=== PATIENT | female | born 1930 | race Caucasian/White ===

== ENCOUNTER 2016-11-24 20:31 | Emergency (ER) | payer OTHER ==
[~2016-11-24] VITALS: Ht 157.5 cm; Wt 92.6 kg
[~2016-11-24 20:31] MED LIST: AMLO-110 PO; ASPEC325 PO; ATEN-175 PO; CLB200 PO; FENO145T26 PO; FLUO20CA20 OR; HYZ/10015 PO; POTA-327 PO; [UNRECOGNIZED DRUG - OTHER] PO
[2016-11-24 20:38] VITALS: TEMP 36.7; Ht 157.5 cm; Wt 92.6 kg
[2016-11-24] MEDS ORDERED: SODIUM CHLORIDE 0.9% 1000ML 1,000 ML IV STA (20:42)
[2016-11-24] MEDS ORDERED: SODIUM CHLORIDE 0.9% 1000ML 250 ML IV STA (20:42)
[2016-11-24] MEDS ORDERED: OPTIRAY 320 IV PRN (21:00)
--- NOTE | 2016-11-24 21:07 | DIAGNOSTIC IMAGING REPORT ---
CHEST ONE VIEW PORTABLE CLINICAL HISTORY: Atypical chest pain COMPARISON STUDY: April 16, 2014 FINDINGS: There is borderline cardiac enlargement. There is no failure. There is no lobar consolidation. There are no pleural effusions. There is a retrocardiac opacity likely representing a hiatal hernia.[ IMPRESSION: Retrocardiac opacity, likely representing a hiatal hernia. No evidence of focal pulmonary consolidation Electronically signed by: Bin Medina M.D. 11/24/2016 9:05 PM Dictated Date/Time: 11/24/2016 9:04 PM
[2016-11-24 21:11] LABS: ISTAT CREATININE 0.8 mg/dl (0.6-1.3); ISTAT HEMOGLOBIN 13.3 g/dl (12.0-16.0); ISTAT IONIZED CALCIUM 1.23 mmol/l (1.12-1.32)
[2016-11-24 21:23] LABS: HEMATOCRIT 37.5 % (37-47); MEAN CELL VOLUME 93.1 fL (80-100); MEAN CORPUSCULAR HGB CONC 34.4 g/dl (32-36); MEAN PLATELET VOLUME 10.3 fL (7.4-10.4); PLATELET COUNT 222 K/uL (130-400); RED BLOOD COUNT 4.03 M/uL (4.2-5.4); WHITE BLOOD COUNT 7.08 K/uL (4.8-10.8)
[2016-11-24 21:39] LABS: ALT/SGPT 14 U/L (12-78); BLOOD UREA NITROGEN 23 mg/dl (7-18); BUN/CREATININE RATIO 23.6 (10-20); CALCIUM 9.2 mg/dl (8.5-10.1); CARBON DIOXIDE 28 mmol/L (21-32); CHLORIDE 102 mmol/L (98-107); CREATININE 0.97 mg/dl (0.60-1.20); GLUCOSE 142 mg/dl (70-99); POTASSIUM 3.8 mmol/L (3.5-5.1); SODIUM 135 mmol/L (136-145)
[2016-11-24 21:41] LABS: BASO % 0.1 %; BASO ABS # 0.01 K/uL (0-0.2); COMPLETE YES; EOS % 1.4 %; IG% 0.1 %; LYMPH % 35.3 %; MONO % 5.8 %; NEUT % 57.3 %
[2016-11-24 21:42] LABS: ALKALINE PHOSPHATASE 66 U/L (45-117); AST/SGOT 17 U/L (15-37)
--- NOTE | 2016-11-24 21:46 | DIAGNOSTIC IMAGING REPORT ---
CT ABD/PELVIS IV CONTRAST ONLY CLINICAL HISTORY: Generalized abdominal pain COMPARISON STUDY: None. TECHNIQUE: Following the IV administration of 92 mL of Optiray-320, CT scan of the abdomen and pelvis was performed from the lung bases to the proximal femurs. Images are reviewed in the axial, sagittal, and coronal planes. IV contrast was administered without complication. CT DOSE: 882.72 mGy.cm FINDINGS: Lower chest: There is a hiatal hernia. No pleural effusions are visualized. Liver: The contrast-enhanced liver is normal in size, contour, and attenuation. There is no intrahepatic biliary ductal dilatation. The hepatic veins and portal veins are patent. Gallbladder: Unremarkable. Spleen: Normal in size and attenuation. Pancreas: Unremarkable. Adrenal glands: Unremarkable. Kidneys: There are tiny nonobstructing right renal calculi. There is no hydronephrosis. There are left renal cortical cysts measuring up to 1 cm in diameter. Bowel: There are no transition zones indicate bowel obstruction. There is colonic diverticulosis. There are no acute peridiverticular inflammatory changes. The appendix appears normal. There is formed fecal material within small bowel loops, but there is no evidence of pathologic small bowel dilatation. Peritoneum: There is no intraperitoneal free air or abdominal ascites. Vasculature: There is minor ectasia of the abdominal aorta. There is no evidence of bandar aneurysm Adenopathy: None. Pelvic viscera: The uterus appears surgically absent Skeletal structures: There are postsurgical changes of a total right hip arthroplasty. There is an old T10 compression fracture. There is a grade 1 spinal listhesis of L4 and L5. IMPRESSION: 1. Hiatal hernia 2. No evidence of bowel obstruction. No evidence of free air 3. Nonobstructing right renal calculi 4. Normal appendix 5. Diverticulosis. No evidence of acute peridiverticular inflammatory change Electronically signed by: Bin Medina M.D. 11/24/2016 9:44 PM Dictated Date/Time: 11/24/2016 9:40 PM
[2016-11-24] MEDS ORDERED: DOCU-94 PO (22:10)
[2016-11-24] MEDS ORDERED: CYCL5TAB PO (22:10)
[2016-11-24] MEDS ORDERED: POTA10CA28 PO (22:10)
[2016-11-24] MEDS ORDERED: FLUO20CA35 PO (22:10)
[2016-11-24] MEDS ORDERED: TRAM-10 PO (22:10)
--- NOTE | 2016-11-24 22:15 | EMERGENCY ROOM VISIT NOTE ---
History Report prepared by Eliel: Shalini Mcgee Under the Supervision of: Dr. Shay Klein M.D. First contact with patient: 20:34 Chief Complaint: ABDOMINAL PAIN Stated Complaint: AB PAIN History of Present Illness The patient is a 86 year old female who presents to the Emergency Room with complaints of an episode of sharp abdominal pain beginning today. The patient states that she had LUQ sharp abdominal pain today and she was eating dinner when it got really bad. She reports that she thought that it may be from being constipated as she has experienced constipation in the past. She notes that she strained to have a bowel movement and became very diaphoretic but did not feel like she was going to pass out. The patient denies any trauma, urinary symptoms , numbness or weakness in the legs, fever, chills, headache, chest pain, shortness of breath, cough, and congestion. She reports that she has had a hysterectomy. The patient states that the abdominal pain went on and off for 3 weeks but is now resolved. Source of History: patient, family Onset: today Position: abdomen (LUQ) Quality: sharp Timing: resolved, other (episode) Associated Symptoms: + diaphoresis, No chest pain, No chills, No cough, No fevers, No headache, No melena, No urinary symptoms Note: The patient denies any trauma, numbness or weakness in the legs, and congestion. Review of Systems See HPI for pertinent positives & negatives. A total of 10 systems reviewed and were otherwise negative. Past Medical & Surgical Medical Problems: (1) Benign colon polyp (2) Depression (3) Dyslipidemia (4) HTN (hypertension) (5) Monoclonal paraproteinemia (6) Osteoarthritis Surgical Problems: (1) H/O: hysterectomy Old medical records were reviewed. Nurse's notes were reviewed and I agree with She does have problems with constipation. Denies cardiac history. Family History No pertinent family history stated. Social History Smoking Status: Never Smoker Smokeless Tobacco Use: No Alcohol Use: none Drug Use: none Housing Status: lives with family Current/Historical Medications Scheduled Amlodipine (Norvasc), 5 MG PO DAILY Atenolol (Tenormin), 150 MG PO DAILY Docusate Sodium (Colace), 2 CAP PO BID Fenofibrate (Tricor ), 145 MG PO QPM Fluoxetine (Prozac), 20 MG PO DAILY Hctz/Losartan (Hyzaar 25MG/100MG), 1 TAB PO DAILY Potassium Chloride (Micro-K Ext Rel), 10 MEQ PO QPM Scheduled PRN Cyclobenzaprine Hcl (Flexeril), 5 MG PO HS PRN for spasms Tramadol (Ultram), 1 TAB PO Q6 PRN for Pain Allergies Coded Allergies: HUONG Inhibitors (Verified Adverse Reaction, Unknown, COUGH, 11/24/16) Physical Exam Vital Signs Date Time Temp Pulse Resp B/P Pulse Ox O2 Delivery O2 Flow Rate FiO2 11/24/16 23:41 77 20 177/71 96 11/24/16 20:38 36.7 86 18 214/92 97 Room Air 11/24/16 20:37 87 Physical Exam General: Non-ill appearing older female in no acute distress. HEENT: Normal cephalic atraumatic. Pupils are equal round and reactive to light. Sclerae anicteric. Extraocular movements are intact. Oropharynx is pink with moist mucous membranes. No swelling of the mouth lips or tongue. Neck: Supple with a midline trachea. No meningeal signs or stiffness, no JVD or bruits. No Stridor. Chest: Clear to auscultation bilaterally. No wheezes or rhonchi. No increased work of breathing. Heart: regular rate and rhythm. Abdomen: Soft nontender, nondistended without rebound guarding or rigidity. Extremities: No cyanosis clubbing or edema. No calf tenderness or assymetry Spine/Back. Non tender to palpation. No CVA tenderness Skin: Good turgor without rashes. Neurologic exam: Cranial nerves two through 12 are intact. Motor and sensation are intact and symmetrical throughout. Medical Decision & Procedures ER Provider Diagnostic Interpretation: Radiology results as stated below per my review and radiologist interpretation: CHEST ONE VIEW PORTABLE FINDINGS: There is borderline cardiac enlargement. There is no failure. There is no lobar consolidation. There are no pleural effusions. There is a retrocardiac opacity likely representing a hiatal hernia.[ IMPRESSION: Retrocardiac opacity, likely representing a hiatal hernia. No evidence of focal pulmonary consolidation Electronically signed by: Bin Medina M.D. 11/24/2016 9:05 PM Dictated Date/Time: 11/24/2016 9:[address] ABD/PELVIS IV CONTRAST ONLY CT DOSE: 882.72 mGy.cm FINDINGS: Lower chest: There is a hiatal hernia. No pleural effusions are visualized. Liver: The contrast-enhanced liver is normal in size, contour, and attenuation. There is no intrahepatic biliary ductal dilatation. The hepatic veins and portal veins are patent. Gallbladder: Unremarkable. Spleen: Normal in size and attenuation. Pancreas: Unremarkable. Adrenal glands: Unremarkable. Kidneys: There are tiny nonobstructing right renal calculi. There is no hydronephrosis. There are left renal cortical cysts measuring up to 1 cm in diameter. Bowel: There are no transition zones indicate bowel obstruction. There is colonic diverticulosis. There are no acute peridiverticular inflammatory changes. The appendix appears normal. There is formed fecal material within small bowel loops, but there is no evidence of pathologic small bowel dilatation. Peritoneum: There is no intraperitoneal free air or abdominal ascites. Vasculature: There is minor ectasia of the abdominal aorta. There is no evidence of bandar aneurysm Adenopathy: None. Pelvic viscera: The uterus appears surgically absent Skeletal structures: There are postsurgical changes of a total right hip arthroplasty. There is an old T10 compression fracture. There is a grade 1 spinal listhesis of L4 and L5. IMPRESSION: 1. Hiatal hernia 2. No evidence of bowel obstruction. No evidence of free air 3. Nonobstructing right renal calculi 4. Normal appendix 5. Diverticulosis. No evidence of acute peridiverticular inflammatory change Electronically signed by: Bin Medina M.D. 11/24/2016 9:44 PM Dictated Date/Time: 11/24/2016 9:40 PM Laboratory Results 11/24/16 20:50 Red Blood Count 4.03, Mean Corpuscular Volume 93.1, Mean Corpuscular Hemoglobin 32.0, Mean Corpuscular Hemoglobin Concent 34.4, Mean Platelet Volume 10.3, Neutrophils (%) (Auto) 57.3, Lymphocytes (%) (Auto) 35.3, Monocytes (%) (Auto) 5.8, Eosinophils (%) (Auto) 1.4, Basophils (%) (Auto) 0.1, Neutrophils # (Auto) 4.05, Lymphocytes # (Auto) 2.50, Monocytes # (Auto) 0.41, Eosinophils # (Auto) 0.10, Basophils # (Auto) 0.01 11/24/16 20:50 Test 11/24/16 20:50 11/24/16 20:54 11/24/16 21:00 11/24/16 22:26 White Blood Count 7.08 K/uL (4.8-10.8) Red Blood Count 4.03 M/uL (4.2-5.4) Hemoglobin 12.9 g/dL (12.0-16.0) Hematocrit 37.5 % (37-47) Mean Corpuscular Volume 93.1 fL (80-100) Mean Corpuscular Hemoglobin 32.0 pg (25-34) Mean Corpuscular Hemoglobin Concent 34.4 g/dl (32-36) Platelet Count 222 K/uL (130-400) Mean Platelet Volume 10.3 fL (7.4-10.4) Neutrophils (%) (Auto) 57.3 % Lymphocytes (%) (Auto) 35.3 % Monocytes (%) (Auto) 5.8 % Eosinophils (%) (Auto) 1.4 % Basophils (%) (Auto) 0.1 % Neutrophils # (Auto) 4.05 K/uL (1.4-6.5) Lymphocytes # (Auto) 2.50 K/uL (1.2-3.4) Monocytes # (Auto) 0.41 K/uL (0.11-0.59) Eosinophils # (Auto) 0.10 K/uL (0-0.5) Basophils # (Auto) 0.01 K/uL (0-0.2) RDW Standard Deviation 46.7 fL (36.4-46.3) RDW Coefficient of Variation 13.9 % (11.5-14.5) Immature Granulocyte % (Auto) 0.1 % Immature Granulocyte # (Auto) 0.01 K/uL (0.00-0.02) Est Creatinine Clear Calc Drug Dose 45.7 ml/min Estimated GFR () 62.2 Estimated GFR (Non- 53.6 BUN/Creatinine Ratio 23.6 (10-20) Calcium Level 9.2 mg/dl (8.5-10.1) Total Bilirubin 0.3 mg/dl (0.2-1) Direct Bilirubin < 0.1 mg/dl (0-0.2) Aspartate Amino Transf (AST/SGOT) 17 U/L (15-37) Alanine Aminotransferase (ALT/SGPT) 14 U/L (12-78) Alkaline Phosphatase 66 U/L (45-117) Total Protein 9.4 gm/dl (6.4-8.2) Albumin 3.2 gm/dl (3.4-5.0) Lipase 299 U/L (73-393) Bedside Hemoglobin 13.3 g/dl (12.0-16.0) Bedside Hematocrit 39 % (37-47) Bedside Sodium 141 mEq/L (135-144) Bedside Potassium 4.0 mEq/L (3.3-5.0) Bedside Chloride 102 mEq/L (101-112) Bedside Total CO2 24 mEq/l (24-31) Anion Gap 21.0 mmol/L (16-25) Bedside Blood Urea Nitrogen 24 mg/dl (7-18) Bedside Creatinine 0.8 mg/dl (0.6-1.3) Bedside Glucose (other) 149 mg/dl (70-99) Bedside Ionized Calcium (Lopez) 1.23 mmol/l (1.12-1.32) Bedside Troponin I 0.000 ng/ml (0-0.045) Urine Color YELLOW Urine Appearance CLEAR (CLEAR) Urine pH 8.0 (4.5-7.5) Urine Specific [place] 1.026 (1.000-1.030) Urine Protein NEG (NEG) Urine Glucose (UA) NEG (NEG) Urine Ketones NEG (NEG) Urine Occult Blood NEG (NEG) Urine Nitrite NEG (NEG) Urine Bilirubin NEG (NEG) Urine Urobilinogen NEG (NEG) Urine Leukocyte Esterase NEG (NEG) Laboratory studies as stated above per my review. Medications Administered Medications (Trade) Dose Ordered Sig/Lalo Route Start Time Stop Time Status Last Admin Dose Admin Sodium Chloride 250 ml @ 999 mls/hr Q16M STAT IV 11/24/16 20:42 11/24/16 20:57 DC 11/24/16 20:42 999 MLS/HR Sodium Chloride (Nss 1000ml) 1,000 ml @ 100 mls/hr Q10H STAT IV 11/24/16 20:42 11/24/16 23:54 DC 11/24/16 20:42 100 MLS/HR ECG Indication: abdominal pain Rate (beats per minute): 79 Rhythm: normal sinus Findings: no acute ischemic change, no ectopy ED Course 2032: Past medical records reviewed. The patient was evaluated in room C9, and a complete history and physical examination were performed. 2041: Sodium Chloride 1000 ml @ 100 mls/hr IV, Sodium Chloride 250 ml @ 999 mls/ hr IV. 2131: I reevaluated the patient and talked to her daughter. 2306: I reevaluated the patient. She is resting comfortably and I talked to her daughter. 2309: Upon reevaluation, the patient is hemodynamically stable. I discussed the results and treatment plan with the patient and her daughter. They verbalized agreement of the treatment plan. The patient was discharged home. Medical Decision Differential Diagnoses include splenic process, AAA, bowel obstruction, kidney stone, infection, inflammation, electrolyte or metabolic imbalance. This patient comes in as described above. She was placed in room C9. She is here for treatment and evaluation of left sided abdominal pain mostly towards upper abdomen. She's been very constipated lately and she was feeling constipated and had this pain and felt like she might pass out. She has no pain at present and feels great and has no chest pain or shortness of breath. She's had no numbness weakness of her legs. No fever or chills. IV access established was gently hydrated with IV normal saline. She had extensive workup done here. EKG does not suggest acute coronary syndrome or arrhythmia. She has nothing to suggest a pulmonary process. I did a CAT scan of her abdomen and she has no acute findings. She has no aortic pathology obstruction or any other symptoms which would explain her symptoms. She has no electrolyte or metabolic abnormalities and nothing to suggest infection. She feels good and would like to go home if it is reasonable .I will have her use a stool softener. I encourage her return if she has worsening of symptoms, fever or chills, chest pain, shortness of breath, any new problems concerns. I also encouraged her her doctors in one to 2 days for recheck. She is happy with plan and discharged to home. Impression Primary Impression: LUQ abdominal pain Additional Impressions: Constipation Near syncope Scribe Attestation The scribe's documentation has been prepared under my direction and personally reviewed by me in its entirety. I confirm that the note above accurately reflects all work, treatment, procedures, and medical decision making performed by me. Departure Information Dispostion Home / Self-Care Referrals Duglas Romo D.O. (PCP) Forms HOME CARE DOCUMENTATION FORM, IMPORTANT VISIT INFORMATION Patient Instructions [facility] Additional Instructions Rest Drink plenty of fluids Use a stool softener or Miralax as needed Return if: worsening of symptoms, increasing pain, chest pain, any new problems or concerns Follow-up with your doctor on Saturday for recheck Problem Qualifiers
[2016-11-24 22:39] LABS: URINE APPEARANCE CLEAR (CLEAR); URINE BILIRUBIN NEG (NEG); URINE COLOR YELLOW; URINE NITRITE NEG (NEG); URINE SPECIFIC GRAVITY 1.026 (1.000-1.030); UROBILINOGEN NEG (NEG)
[2016-11-24 22:43] LABS: MANUAL MICROSCOPIC REQUIRED? NO; REVIEW REQ? NO
[2016-11-24 23:41] VITALS: BP 177/71; PULSE 77; O2SAT 96
== END 2016-11-24 23:42 | disposition home or self-care (01) ==
LOC: EDBD 20:31 → C.EDC 20:31
DX: R10.12 Left upper quadrant pain (principal); K59.00 Constipation, unspecified; R55 Syncope and collapse; I10 Essential (primary) hypertension; E78.5 Hyperlipidemia, unspecified; Z90.710 Acquired absence of both cervix and uterus; M19.90 Unspecified osteoarthritis, unspecified site; F32.9 Major depressive disorder, single episode, unspecified

== ENCOUNTER 2017-10-26 16:57 | Inpatient (IN) | payer OTHER ==
[~2017-10-26] VITALS: Ht 157.5 cm; Wt 90.1 kg
[~2017-10-26 16:57] MED LIST changes: -ASPEC325 PO; -CLB200 PO; +CYCL5TAB PO; +DOCU-94 PO; -FLUO20CA20 OR; +FLUO20CA35 PO; -POTA-327 PO; +POTA10CA28 PO; +TRAM-10 PO; -[UNRECOGNIZED DRUG - OTHER] PO
[2017-10-26] MEDS ORDERED: SODIUM CHLORIDE 0.9% 1000ML 1,000 ML IV STA (17:02)
[2017-10-26] MEDS ORDERED: ACETAMINOPHEN 500 MG TAB PO STA (17:20)
[2017-10-26] MEDS ORDERED: SODIUM CHLORIDE 0.9% 500ML 500 ML IV STA (17:21)
[2017-10-26 18:03] LABS: HEMATOCRIT 34.1 % (37-47); HEMOGLOBIN 11.7 g/dL (12.0-16.0); MEAN CELL VOLUME 96.1 fL (80-100); MEAN CORPUSCULAR HGB CONC 34.3 g/dl (32-36); MEAN PLATELET VOLUME 10.4 fL (7.4-10.4); PLATELET COUNT 169 K/uL (130-400); RED CELL DISTRIBUTION WIDTH CV 13.8 % (11.5-14.5); RED CELL DISTRIBUTION WIDTH SD 48.5 fL (36.4-46.3)
[2017-10-26 18:04] LABS: INFLUENZA A PCR Neg for Influ A (NEG); INFLUENZA B PCR Neg for Influ B (NEG)
[2017-10-26 18:12] LABS: INR 1.4 (0.9-1.1); PTT PATIENT 30.1 SECONDS (21.0-31.0)
[2017-10-26 18:20] LABS: ALBUMIN 2.6 gm/dl (3.4-5.0); ALT/SGPT 13 U/L (12-78); AST/SGOT 19 U/L (15-37); BLOOD UREA NITROGEN 20 mg/dl (7-18); CALCIUM 8.9 mg/dl (8.5-10.1); CARBON DIOXIDE 25 mmol/L (21-32); CREATININE 1.04 mg/dl (0.60-1.20); GLUCOSE 123 mg/dl (70-99); LIPASE 92 U/L (73-393); POTASSIUM 3.5 mmol/L (3.5-5.1); SODIUM 132 mmol/L (136-145)
[2017-10-26] MEDS ORDERED: POLY335019 PO (18:20)
--- NOTE | 2017-10-26 18:28 | DIAGNOSTIC IMAGING REPORT ---
CHEST ONE VIEW PORTABLE HISTORY: EVALUATE WEAKNESS COMPARISON: Chest 11/24/2014. FINDINGS: The right lung is clear. The heart is borderline enlarged. This remains unchanged. No pleural effusions. No pneumothorax. There is a new airspace opacity within the left lower lobe. Small hiatus hernia, unchanged. IMPRESSION: A new left lower lobe airspace opacity consistent with a pneumonia. Recommend follow-up to ensure resolution. Electronically signed by: Riccardo Ferris M.D. 10/26/2017 6:27 PM Dictated Date/Time: 10/26/2017 6:26 PM
[2017-10-26 18:31] LABS: ALKALINE PHOSPHATASE 52 U/L (45-117)
[2017-10-26 18:39] LABS: BASO % 0.2 %; BASO ABS # 0.02 K/uL (0-0.2); IG# 0.04 K/uL (0.00-0.02); LYMPH ABS # 1.25 K/uL (1.2-3.4); MONO % 5.6 %; MONO ABS # 0.58 K/uL (0.11-0.59); NEUT % 81.8 %; NEUT ABS # 8.51 K/uL (1.4-6.5)
[2017-10-26] MEDS ORDERED: LEVAQUIN 750MG / 150ML D5W IV STA (18:46)
--- NOTE | 2017-10-26 19:10 | History and Physical ---
History & Physical Date & Time of Service: Oct 26, 2017 at 19:10 Chief Complaint: Fever, Flu Like Sx, Weakness Primary Care Physician: Duglas Romo D.O. History of Present Illness Source: patient, family (Daughter ) This a 87 yo F with past medical hx of HTN , Hyperlipidemia , Ostearthritis , depression -brought to ER by her Daughter Pt has been having cough , fever , chills, sore throat for past 3-4 days , had poor PO intake had generalized weakness, no muscle or joint ache pt lives with her daughter and son in law -both have been having URI symptoms for past 1 week This morning her daughter noticed -pt to be for confused ," foggy " , unable to remember things -which is off form her baseline pt is independent in her ADL' , at baseline usually not forgetful in ER pt was febrile temp 38.3 /tachycardic HR 108 /tachypneic RR 20 was hypoxic in room air, on 2 L 02 supplement ( not on home O2) Cxray shows Left lower lobe infiltrate Influenza PCR -negative for Influenza A/B Past Medical/Surgical History Medical Problems: (1) Benign colon polyp Status: Resolved (2) Depression Status: Chronic (3) Dyslipidemia Status: Chronic (4) HTN (hypertension) Status: Chronic (5) Monoclonal paraproteinemia Status: Chronic (6) Osteoarthritis Status: Chronic Surgical Problems: (1) H/O: hysterectomy Status: Resolved Social History Smoking Status: Never Smoker Drug Use: none Housing status: lives with family Multi-Drug Resistant Organisms History of MDRO: No Allergies Coded Allergies: HUONG Inhibitors (Verified Adverse Reaction, Unknown, COUGH, 10/26/17) Home Medications Scheduled Amlodipine (Norvasc), 5 MG PO DAILY Atenolol (Tenormin), 150 MG PO DAILY Fenofibrate (Tricor ), 145 MG PO QPM Fluoxetine (Prozac), 20 MG PO DAILY Polyethylene Glycol 3350 (Miralax), 17 GM PO DAILY Potassium Chloride (Micro-K Ext Rel), 10 MEQ PO QPM Scheduled PRN Cyclobenzaprine Hcl (Flexeril), 5 MG PO HS PRN for spasms Tramadol (Ultram), 1 TAB PO Q6 PRN for Pain Review of Systems Constitutional: + fever, + chills, + weakness, + fatigue, + problem reported ( headache ) ENT: + sore throat Respiratory: + cough, + sputum, + shortness of breath, + dyspnea on exertion Abdomen: No pain, No nausea, No vomiting, No diarrhea, No constipation, No GI bleeding, No problem reported Musculoskeletal: No joint pain, No muscle pain, No swelling, No calf pain, No problem reported Genitourinary - Female: No dysuria, No urinary frequency, No urinary urgency, No urinary incontinence, No urinary retention, No hematuria, No dysmenorrhea, No menorrhagia, No metrorrhagia, No rash, No vaginal bleeding, No vaginal discharge, No vaginal itching, No vulvodynia, No , No problem reported Neurologic: + memory loss, + weakness, + vertigo, + balance problems Endocrine: + fatigue Physical Exam Vital Signs Date Time Temp Pulse Resp B/P (MAP) Pulse Ox O2 Delivery O2 Flow Rate FiO2 10/26/17 18:52 95 20 156/74 95 Nasal Cannula 2.0 10/26/17 17:40 92 Room Air 10/26/17 17:08 38.3 108 20 156/74 92 Room Air 10/26/17 17:07 99 General Appearance: no apparent distress, + pertinent finding (well appearing elderly female , very pleasant ) Head: normocephalic, atraumatic Eyes: normal inspection, PERRL, EOMI, sclerae normal Neck: no carotid bruits, trachea midline Respiratory/Chest: chest non-tender, + crackles, + wheezing Cardiovascular: no edema, + tachycardia Abdomen/GI: non tender, soft Extremities/Musculoskelatal: normal inspection, no calf tenderness, normal capillary refill, no pedal edema Neurologic/Psych: no motor/sensory deficits, alert, normal mood/affect Skin: normal color, warm/dry, no rash Diagnostics Laboratory Results Results Past 24 Hours Test 10/26/17 17:00 10/26/17 17:30 10/26/17 17:52 Range/Units Influenza Type A (RT-PCR) Neg for Influ A NEG Influenza Type B (RT-PCR) Neg for Influ B NEG White Blood Count 10.40 4.8-10.8 K/uL Red Blood Count 3.55 4.2-5.4 M/uL Hemoglobin 11.7 12.0-16.0 g/dL Hematocrit 34.1 37-47 % Mean Corpuscular Volume 96.1 80-100 fL Mean Corpuscular Hemoglobin 33.0 25-34 pg Mean Corpuscular Hemoglobin Concent 34.3 32-36 g/dl Platelet Count 169 130-400 K/uL Mean Platelet Volume 10.4 7.4-10.4 fL Neutrophils (%) (Auto) 81.8 % Lymphocytes (%) (Auto) 12.0 % Monocytes (%) (Auto) 5.6 % Eosinophils (%) (Auto) 0.0 % Basophils (%) (Auto) 0.2 % Neutrophils # (Auto) 8.51 1.4-6.5 K/uL Lymphocytes # (Auto) 1.25 1.2-3.4 K/uL Monocytes # (Auto) 0.58 0.11-0.59 K/uL Eosinophils # (Auto) 0.00 0-0.5 K/uL Basophils # (Auto) 0.02 0-0.2 K/uL RDW Standard Deviation 48.5 36.4-46.3 fL RDW Coefficient of Variation 13.8 11.5-14.5 % Immature Granulocyte % (Auto) 0.4 % Immature Granulocyte # (Auto) 0.04 0.00-0.02 K/uL Red Blood Cell Morphology Unremarkable Prothrombin Time 14.4 9.0-12.0 SECONDS Prothromb Time International Ratio 1.4 0.9-1.1 Activated Partial Thromboplast Time 30.1 21.0-31.0 SECONDS Partial Thromboplastin Ratio 1.2 Sodium Level 132 136-145 mmol/L Potassium Level 3.5 3.5-5.1 mmol/L Chloride Level 101 98-107 mmol/L Carbon Dioxide Level 25 21-32 mmol/L Anion Gap 6.0 3-11 mmol/L Blood Urea Nitrogen 20 7-18 mg/dl Creatinine 1.04 0.60-1.20 mg/dl Est Creatinine Clear Calc Drug Dose 41.4 ml/min Estimated GFR () 56.7 Estimated GFR (Non- 49.0 BUN/Creatinine Ratio 19.3 10-20 Random Glucose 123 70-99 mg/dl Calcium Level 8.9 8.5-10.1 mg/dl Magnesium Level 1.5 1.8-2.4 mg/dl Total Bilirubin 0.9 0.2-1 mg/dl Direct Bilirubin 0.3 0-0.2 mg/dl Aspartate Amino Transf (AST/SGOT) 19 15-37 U/L Alanine Aminotransferase (ALT/SGPT) 13 12-78 U/L Alkaline Phosphatase 52 45-117 U/L Troponin I < 0.015 0-0.045 ng/ml Total Protein 9.0 6.4-8.2 gm/dl Albumin 2.6 3.4-5.0 gm/dl Lipase 92 73-393 U/L Thyroid Stimulating Hormone (TSH) 1.740 0.300-4.500 uIu/ml Microbiology Results 10/26/17 Blood Culture, Received Pending 10/26/17 Blood Culture, Received Pending Diagnostic Radiology CHEST ONE VIEW PORTABLE HISTORY: EVALUATE WEAKNESS COMPARISON: Chest 11/24/2014. FINDINGS: The right lung is clear. The heart is borderline enlarged. This remains unchanged. No pleural effusions. No pneumothorax. There is a new airspace opacity within the left lower lobe. Small hiatus hernia, unchanged. IMPRESSION: A new left lower lobe airspace opacity consistent with a pneumonia. Recommend follow-up to ensure resolution. Impression Assessment and Plan COMMUNITY ACQUIRED PNEUMONIA : presents with 3-4 days hx of fever, sore throat , headache , cough with productive sputum Influenza PCR -negative Left lower lobe infiltrate noted in Cxray pt's meets SIRS criteria -febrile on presentation , tachycardic, tachypneic source of infection -Pneumonia on presentation white count -wnl pt started on empiric Abx with IV Levaquin blood culture x2, sputum culture ordered in ER SOB /HYPOXIA REQUIRING SUPPLEMENTAL : due to above wheeze noted on auscultation. no Hx of COPD or asthma PRN Neb tx Xoponex/Atrovent ordered cont tx for pneumonia as outlined above expected to have resolution of hypoxia in next 24-48 hrs with clinical improvement CONFUSION : mild confusion /forgetfulness noted by Daughter this morning possible metabolic encephalopathy due to infection /pneumonia /electrolyte abnormality /dehydration mental status improved gradually with IV hydration continue to monitor fall precaution ordered HYPONATREMIA : Mild hyponatremia Na 132 -due to dehydration , poor PO intake not on any diuretics IVF with NSS ordered repeat BMP in AM LOW MG : due to poor PO intake replaced MILD COAGULOPATHY : INR 1.4 /PT 14.4 pt not on any anticoagulation does no take Aspirin LFT' -unremarkable possible due to viral illness repeat Coags ordered in AM will hold sub q heparin for DVT prophylaxis HTN : BP stable cont Atenolol HYPERLIPIDEMIA : on Tricor/Fenofibrate DEPRESSION : on SSRI FULL CODE -D/w pt DVT PROPHYLAXIS : SCD and teds ambulate DISPOSITION PT/OT eval requested lives at home with daughter will benefit with home health visiting nurse -social service consult requested Medicine follow up with Dr Romo at [facility] Level of Care Telemetry Resuscitation Status FULL RESUSCITATION VTE Prophylaxis VTE Risk Assessment Done? Y/N: Yes Risk Level: Moderate Given or contraindicated: Martell Stockings, SCD's Additional Copies To Duglas Romo D.O.
[2017-10-26] MEDS ORDERED: ALUMINUM/MAGNESIUM/SIMETH (MAALOX MAX) 30 ML UDC PO PRN (19:15)
[2017-10-26] MEDS ORDERED: ONDANSETRON INJ 2 MG/ML 2 ML VIAL IV PRN (19:15)
[2017-10-26] MEDS ORDERED: MAGNESIUM HYDROXIDE SUSP 30 ML UDC PO PRN (19:15)
[2017-10-26] MEDS ORDERED: ACETAMINOPHEN 325 MG TAB PO PRN (19:15)
[2017-10-26] MEDS ORDERED: NITROGLYCERIN 0.4 MG SL PER TAB CHARGE SL PRN (19:15)
[2017-10-26] MEDS ORDERED: POLYETHYLENE (MIRALAX) 17 GM PACK PO PRN (19:15)
[2017-10-26 19:30] VITALS: BP 160/76; PULSE 99; TEMP 36.9; O2SAT 95; Ht 157.5 cm; Wt 90.1 kg
[2017-10-26] MEDS ORDERED: TRAMADOL HCL 50 MG TAB PO PRN (19:30)
[2017-10-26] MEDS ORDERED: CYCLOBENZAPRINE HCL 5 MG TAB PO PRN (19:30)
[2017-10-26] MEDS ORDERED: SODIUM CHLORIDE 0.9% 1000ML 1,000 ML IV SCH (20:00)
[2017-10-26] MEDS ORDERED: LEVOFLOXACIN CONSULT ACTIVE PRN (20:00)
[2017-10-26] MEDS ORDERED: MAGNESIUM SULFATE 1GM / D5W 1 GM in PREMIXED IN D5W 100 ML IV ONE (20:00)
--- NOTE | 2017-10-26 20:34 | EMERGENCY ROOM VISIT NOTE ---
History Report prepared by Eliel: Laurent Caputo Under the Supervision of: Dr. Tommy Lund M.D. First contact with patient: 17:02 Chief Complaint: FLU LIKE SX Stated Complaint: FEVER, FLU LIKE SX, WEAKNESS History of Present Illness The patient is a 87 year old female who presents to the Emergency Room with complaints of flu-like symptoms that began four days ago. She denies any known lung history. Over the past couple of days, the patient has been experiencing a multitude of symptoms which includes a fever, chills, a nonproductive cough, a sore throat, and body aches. She did not receive her influenza vaccine. She has recently been feeling moderate generalized weakness with some shortness of breath as well. Pt denies LOC, headache, diaphoresis, visual changes, neck pain , chest pain, nausea, vomiting, abdominal pain, back pain, melena, hematochezia , urinary symptoms, numbness, weakness, lymphadenopathy, rash, or other complaints. She has been taking Tylenol for her symptoms, but did not take any today. She took a dose of Robitussin earlier today. She does not wear oxygen at home. Source of History: patient Onset: four days ago Position: other (global) Symptom Intensity: moderate Quality: other (Flu-like symptoms) Timing: worsening Associated Symptoms: + fevers, + chills, + sorethroat, + cough, + SOB, + weakness (generalized) Note: Positive body aches Review of Systems See HPI for pertinent positives and negatives. A total of ten systems were reviewed and were otherwise negative. Past Medical & Surgical Medical Problems: (1) Benign colon polyp (2) Depression (3) Dyslipidemia (4) Flu-like symptoms (5) HTN (hypertension) (6) Monoclonal paraproteinemia (7) Osteoarthritis (8) Pneumonia Surgical Problems: (1) H/O: hysterectomy Family History Omitted secondary to the patient's age. Social History Smoking Status: Never Smoker Alcohol Use: none Drug Use: none Housing Status: lives with family Current/Historical Medications Scheduled Amlodipine (Norvasc), 5 MG PO DAILY Atenolol (Tenormin), 150 MG PO DAILY Fenofibrate (Tricor ), 145 MG PO QPM Fluoxetine (Prozac), 20 MG PO DAILY Polyethylene Glycol 3350 (Miralax), 17 GM PO DAILY Potassium Chloride (Micro-K Ext Rel), 10 MEQ PO QPM Scheduled PRN Cyclobenzaprine Hcl (Flexeril), 5 MG PO HS PRN for spasms Tramadol (Ultram), 1 TAB PO Q6 PRN for Pain Allergies Coded Allergies: HUONG Inhibitors (Verified Adverse Reaction, Unknown, COUGH, 10/26/17) Physical Exam Vital Signs Date Time Temp Pulse Resp B/P (MAP) Pulse Ox O2 Delivery O2 Flow Rate FiO2 10/26/17 18:52 95 20 156/74 95 Nasal Cannula 2.0 10/26/17 17:40 92 Room Air 10/26/17 17:08 38.3 108 20 156/74 92 Room Air 10/26/17 17:07 99 Physical Exam GENERAL: Awake, alert, tired-appearing, in no distress HENT: Normocephalic, atraumatic. Oropharynx unremarkable. EYES: Normal conjunctiva. Sclera non-icteric. NECK: Supple. No nuchal rigidity. FROM. No JVD. RESPIRATORY: Clear to auscultation. CARDIAC: Borderline tachycardic rate, normal rhythm. Extremities warm and well perfused. Pulses equal. ABDOMEN: Soft, non-distended. No tenderness to palpation. No rebound or guarding. No masses. RECTAL: Deferred. MUSCULOSKELETAL: Chest examination reveals no tenderness. The back is symmetrical on inspection without obvious abnormality. There is no CVA tenderness to palpation. No joint edema. LOWER EXTREMITIES: Calves are equal size bilaterally and non-tender. No edema. No discoloration. NEURO: Normal sensorium. No sensory or motor deficits noted. SKIN: No rash or jaundice noted. Medical Decision & Procedures ER Provider Diagnostic Interpretation: Radiology results as stated below per my review and radiologist interpretation: CHEST ONE VIEW PORTABLE HISTORY: EVALUATE WEAKNESS COMPARISON: Chest 11/24/2014. FINDINGS: The right lung is clear. The heart is borderline enlarged. This remains unchanged. No pleural effusions. No pneumothorax. There is a new airspace opacity within the left lower lobe. Small hiatus hernia, unchanged. IMPRESSION: A new left lower lobe airspace opacity consistent with a pneumonia. Recommend follow-up to ensure resolution. Electronically signed by: Riccardo Ferris M.D. 10/26/2017 6:27 PM Dictated Date/Time: 10/26/2017 6:26 PM Laboratory Results 10/26/17 17:30 Red Blood Count 3.55, Mean Corpuscular Volume 96.1, Mean Corpuscular Hemoglobin 33.0, Mean Corpuscular Hemoglobin Concent 34.3, Mean Platelet Volume 10.4, Neutrophils (%) (Auto) 81.8, Lymphocytes (%) (Auto) 12.0, Monocytes (%) (Auto) 5.6, Eosinophils (%) (Auto) 0.0, Basophils (%) (Auto) 0.2, Neutrophils # (Auto) 8.51, Lymphocytes # (Auto) 1.25, Monocytes # (Auto) 0.58, Eosinophils # (Auto) 0.00, Basophils # (Auto) 0.02 10/26/17 17:30 Test 10/26/17 17:00 10/26/17 17:30 10/26/17 17:52 Influenza Type A (RT-PCR) Neg for Influ A (NEG) Influenza Type B (RT-PCR) Neg for Influ B (NEG) White Blood Count 10.40 K/uL (4.8-10.8) Red Blood Count 3.55 M/uL (4.2-5.4) Hemoglobin 11.7 g/dL (12.0-16.0) Hematocrit 34.1 % (37-47) Mean Corpuscular Volume 96.1 fL (80-100) Mean Corpuscular Hemoglobin 33.0 pg (25-34) Mean Corpuscular Hemoglobin Concent 34.3 g/dl (32-36) Platelet Count 169 K/uL (130-400) Mean Platelet Volume 10.4 fL (7.4-10.4) Neutrophils (%) (Auto) 81.8 % Lymphocytes (%) (Auto) 12.0 % Monocytes (%) (Auto) 5.6 % Eosinophils (%) (Auto) 0.0 % Basophils (%) (Auto) 0.2 % Neutrophils # (Auto) 8.51 K/uL (1.4-6.5) Lymphocytes # (Auto) 1.25 K/uL (1.2-3.4) Monocytes # (Auto) 0.58 K/uL (0.11-0.59) Eosinophils # (Auto) 0.00 K/uL (0-0.5) Basophils # (Auto) 0.02 K/uL (0-0.2) RDW Standard Deviation 48.5 fL (36.4-46.3) RDW Coefficient of Variation 13.8 % (11.5-14.5) Immature Granulocyte % (Auto) 0.4 % Immature Granulocyte # (Auto) 0.04 K/uL (0.00-0.02) Red Blood Cell Morphology Unremarkable Prothrombin Time 14.4 SECONDS (9.0-12.0) Prothromb Time International Ratio 1.4 (0.9-1.1) Activated Partial Thromboplast Time 30.1 SECONDS (21.0-31.0) Partial Thromboplastin Ratio 1.2 Anion Gap 6.0 mmol/L (3-11) Est Creatinine Clear Calc Drug Dose 41.4 ml/min Estimated GFR () 56.7 Estimated GFR (Non- 49.0 BUN/Creatinine Ratio 19.3 (10-20) Calcium Level 8.9 mg/dl (8.5-10.1) Magnesium Level 1.5 mg/dl (1.8-2.4) Total Bilirubin 0.9 mg/dl (0.2-1) Direct Bilirubin 0.3 mg/dl (0-0.2) Aspartate Amino Transf (AST/SGOT) 19 U/L (15-37) Alanine Aminotransferase (ALT/SGPT) 13 U/L (12-78) Alkaline Phosphatase 52 U/L (45-117) Troponin I < 0.015 ng/ml (0-0.045) Total Protein 9.0 gm/dl (6.4-8.2) Albumin 2.6 gm/dl (3.4-5.0) Lipase 92 U/L (73-393) Thyroid Stimulating Hormone (TSH) 1.740 uIu/ml (0.300-4.500) Laboratory results reviewed by me Medications Administered Medications (Trade) Dose Ordered Sig/Lalo Route Start Time Stop Time Status Last Admin Dose Admin Sodium Chloride 1,000 ml @ 125 mls/hr Q8H STAT IV 10/26/17 17:02 10/26/17 19:46 DC 10/26/17 17:02 125 MLS/HR Acetaminophen (Tylenol Tab) 1,000 mg NOW STAT PO 10/26/17 17:20 10/26/17 17:21 DC 10/26/17 17:44 1,000 MG Sodium Chloride 500 ml @ 999 mls/hr Q31M STAT IV 10/26/17 17:21 10/26/17 17:51 DC 10/26/17 17:21 999 MLS/HR Levofloxacin (Levaquin / D5W) 750 mg NOW STAT IV 10/26/17 18:46 10/26/17 18:47 DC 10/26/17 18:52 750 MG ECG Indication: weakness Rate (beats per minute): 100 Rhythm: sinus rhythm Findings: PAC, no acute ischemic change, other (Poor r-wave progression anteriorly) Change: ECG interpreted by me ED Course 1702: The patient was evaluated in room B7. A complete history and physical exam was performed. Ordered Sodium Chloride 1000 ml @ 999 mls/hr IV 1720: Ordered Tylenol Tab 1000 mg PO 172: Ordered Sodium Chloride 500 ml @ 999 mls/hr IV 1846: Ordered Levofloxacin 750 mg IV 1850: I updated the patient at this time. She is resting comfortably. 190: Upon reexamination, the patient was resting. I discussed the test results and treatment plan with her. I discussed the patient's [facility] The patient will be evaluated for further management. Medical Decision Prior records/ancillary studies reviewed. Triage Nursing notes reviewed and agree them. Additional history obtained from the family. The patient's history was concerning for flulike symptoms and shortness of breath. Differential diagnosis: Etiologies such as pneumonia, COPD, reactive airway disease, CHF, cardiac ischemia, pulmonary embolism, pneumothorax, musculoskeletal, infections, gastrointestinal, as well as others were entertained. Physical examination: As above. The patient was hypoxic. ER treatment provided: Supplemental oxygen Normal saline hydration IV Levaquin On reassessment the patient felt better. Diagnostic interpretation by me: The electrocardiogram was negative for pathologic change. The labs revealed an unremarkable CBC and chemistry panel. Cardiac markers negative. Flu testing negative. Imaging studies: Chest x-ray as above. Consultation: A consultation was placed with the hospitalist. The case was discussed and diagnostics were reviewed. The patient was evaluated in the ER for further treatment. Medication Reconcilliation Current Medication List: was personally reviewed by me Blood Pressure Screening Patient's blood pressure: Elevated blood pressure Referred to the hospitalist. Consults Time Called: 1854 Consulting Physician: Dr. Benitez - [facility] Returned Call: [phone] Discussed the patient's case. The patient will be evaluated for further treatment and disposition. Impression Primary Impression: Pneumonia Additional Impression: Hypoxia Scribe Attestation The scribe's documentation has been prepared under my direction and personally reviewed by me in its entirety. I confirm that the note above accurately reflects all work, treatment, procedures, and medical decision making performed by me. Departure Information Dispostion Being Evaluated By Hospitalist Referrals Duglas Romo D.O. (PCP) Patient Instructions My [facility] Problem Qualifiers
[2017-10-26] MEDS ORDERED: LEVALBUTEROL/IPRATROPIUM NEB INH SCH (20:45)
[2017-10-26] MEDS ORDERED: LEVALBUTEROL/IPRATROPIUM NEB INH PRN (20:45)
[2017-10-26] MEDS: FENOFIBRATE 145 MG TAB PO SCH (20:56)
[2017-10-26] MEDS: POTASSIUM CHLORIDE 10 MEQ TABCR PO SCH (20:56)
[2017-10-26] MEDS ORDERED: IPRATROPIUM BROMIDE NEB SOLN 0.02% 2.5 ML VIAL INH PRN (21:00)
[2017-10-26] MEDS ORDERED: LEVALBUTEROL 1.25MG/0.5ML NEB INH PRN (21:00)
[2017-10-26] MEDS ORDERED: IPRATROPIUM BROMIDE NEB SOLN 0.02% 2.5 ML VIAL INH ONE (21:00)
[2017-10-26] MEDS ORDERED: LEVALBUTEROL 1.25MG/0.5ML NEB INH ONE (21:00)
[2017-10-26] MEDS ORDERED: HEPARIN SOD 5000 UNIT/0.5 ML CARP SQ SCH (22:00)
[2017-10-26 23:49] VITALS: BP 132/74; PULSE 97; TEMP 37; O2SAT 93
[2017-10-27] VITALS (7 sets, daily range): BP systolic 138–154; BP diastolic 70–84; PULSE 85–108; TEMP 37–37.4; O2SAT 92–95
[2017-10-27 06:07] LABS: HEMATOCRIT 31.6 % (37-47); HEMOGLOBIN 10.7 g/dL (12.0-16.0); MEAN CORPUSCULAR HEMOGLOBIN 32.5 pg (25-34); MEAN CORPUSCULAR HGB CONC 33.9 g/dl (32-36); MEAN PLATELET VOLUME 10.6 fL (7.4-10.4); PLATELET COUNT 164 K/uL (130-400); RED CELL DISTRIBUTION WIDTH CV 13.7 % (11.5-14.5); RED CELL DISTRIBUTION WIDTH SD 47.7 fL (36.4-46.3); WHITE BLOOD COUNT 9.98 K/uL (4.8-10.8)
[2017-10-27 06:20] LABS: INR 1.4 (0.9-1.1)
[2017-10-27 07:37] LABS: ALBUMIN 2.2 gm/dl (3.4-5.0); CALCIUM 8.3 mg/dl (8.5-10.1); CREATININE 0.85 mg/dl (0.60-1.20); POTASSIUM 3.5 mmol/L (3.5-5.1)
[2017-10-27] MEDS: POLYETHYLENE (MIRALAX) 17 GM PACK PO SCH (09:00)
[2017-10-27] MEDS: FLUOXETINE HCL 20 MG CAP PO SCH (09:00)
[2017-10-27] MEDS: AMLODIPINE BESYLATE 5 MG TAB PO SCH (09:00)
[2017-10-27] MEDS ORDERED: ALBUT/IPRATROP 3MG/0.5MG NEB 3 ML VIAL INH PRN (15:15)
--- NOTE | 2017-10-27 15:27 | Progress Note ---
Medicine Progress Note Date & Time of Visit: Oct 27, 2017 at 15:08. Subjective -pt feels improved overall today -denies fevers or chills -low appetite but is tolerating food Objective Last 8 Hrs Date Time Temp Pulse Resp B/P (MAP) Pulse Ox O2 Delivery O2 Flow Rate FiO2 10/27/17 12:14 Nasal Cannula 1.0 10/27/17 11:49 37.0 85 20 154/73 (100) 94 Nasal Cannula 1.0 10/27/17 08:03 Nasal Cannula 1.0 10/27/17 08:00 37.1 108 24 144/71 (95) 94 Nasal Cannula 1.0 Physical Exam: GEN: WNWD, in no acute distress, alert and appropriate HEENT: NC/AT, normal sclerae, MMM CARDIO: reg rate, S1/2 heard without m/g/r LUNGS: CTA bilaterally, no crackles, rales or wheezes, good diaphragmatic excursion ABD: soft, non-tender, non-distended, no rebound or guarding, +BS EXTREMITY: RP and DP palpable 2+ bilat, no LE swelling or edema, extremities are warm and well-perfused NEURO: CN 2-12 grossly intact MUSC: 5/5 strength throughout, no gross focal deficits SKIN: warm and dry Laboratory Results: 10/27/17 05:10 10/27/17 05:10 Test 10/26/17 17:00 10/26/17 17:30 10/27/17 04:00 10/27/17 05:10 Influenza Type A (RT-PCR) Neg for Influ A (NEG) Influenza Type B (RT-PCR) Neg for Influ B (NEG) Immature Granulocyte % (Auto) 0.4 % White Blood Count 10.40 K/uL (4.8-10.8) Red Blood Count 3.55 M/uL (4.2-5.4) 3.29 M/uL (4.2-5.4) Hemoglobin 11.7 g/dL (12.0-16.0) Hematocrit 34.1 % (37-47) Mean Corpuscular Volume 96.1 fL (80-100) 96.0 fL (80-100) Mean Corpuscular Hemoglobin 33.0 pg (25-34) 32.5 pg (25-34) Mean Corpuscular Hemoglobin Concent 34.3 g/dl (32-36) 33.9 g/dl (32-36) Platelet Count 169 K/uL (130-400) Mean Platelet Volume 10.4 fL (7.4-10.4) 10.6 fL (7.4-10.4) Neutrophils (%) (Auto) 81.8 % Lymphocytes (%) (Auto) 12.0 % Monocytes (%) (Auto) 5.6 % Eosinophils (%) (Auto) 0.0 % Basophils (%) (Auto) 0.2 % Neutrophils # (Auto) 8.51 K/uL (1.4-6.5) Lymphocytes # (Auto) 1.25 K/uL (1.2-3.4) Monocytes # (Auto) 0.58 K/uL (0.11-0.59) Eosinophils # (Auto) 0.00 K/uL (0-0.5) Basophils # (Auto) 0.02 K/uL (0-0.2) Immature Granulocyte # (Auto) 0.04 K/uL (0.00-0.02) Dohle Bodies 1+ Red Blood Cell Morphology Unremarkable Activated Partial Thromboplast Time 30.1 SECONDS (21.0-31.0) Partial Thromboplastin Ratio 1.2 Troponin I < 0.015 ng/ml (0-0.045) Lipase 92 U/L (73-393) Procalcitonin 2.02 ng/ml (0-0.5) Thyroid Stimulating Hormone (TSH) 1.740 uIu/ml (0.300-4.500) Urine Color ORANGE Urine Appearance CLEAR (CLEAR) Urine pH 5.0 (4.5-7.5) Urine Specific [place] 1.023 (1.000-1.030) Urine Protein NEG (NEG) Urine Glucose (UA) NEG (NEG) Urine Ketones NEG (NEG) Urine Occult Blood NEG (NEG) Urine Nitrite NEG (NEG) Urine Bilirubin NEG (NEG) Urine Urobilinogen NEG (NEG) Urine Leukocyte Esterase SMALL (NEG) Urine WBC (Auto) 5-10 /hpf (0-5) Urine RBC (Auto) 0-4 /hpf (0-4) Urine Hyaline Casts (Auto) 5-10 /lpf (0-5) Urine Epithelial Cells (Auto) >30 /lpf (0-5) Urine Bacteria (Auto) NEG (NEG) RDW Standard Deviation 47.7 fL (36.4-46.3) RDW Coefficient of Variation 13.7 % (11.5-14.5) Prothrombin Time 14.8 SECONDS (9.0-12.0) Prothromb Time International Ratio 1.4 (0.9-1.1) Anion Gap 6.0 mmol/L (3-11) Est Creatinine Clear Calc Drug Dose 50.5 ml/min Estimated GFR () 72.4 Estimated GFR (Non- 62.5 BUN/Creatinine Ratio 23.8 (10-20) Calcium Level 8.3 mg/dl (8.5-10.1) Magnesium Level 1.7 mg/dl (1.8-2.4) Total Bilirubin 0.8 mg/dl (0.2-1) Direct Bilirubin 0.3 mg/dl (0-0.2) Aspartate Amino Transf (AST/SGOT) 17 U/L (15-37) Alanine Aminotransferase (ALT/SGPT) 12 U/L (12-78) Alkaline Phosphatase 49 U/L (45-117) Total Protein 8.0 gm/dl (6.4-8.2) Albumin 2.2 gm/dl (3.4-5.0) Date/Time Source Procedure Growth Status 10/26/17 17:40 Blood Blood Culture Pending Received Last 24 Hours Test 10/26/17 17:00 10/26/17 17:30 10/27/17 04:00 10/27/17 05:10 Influenza Type A (RT-PCR) Neg for Influ A Influenza Type B (RT-PCR) Neg for Influ B White Blood Count 10.40 K/uL 9.98 K/uL Red Blood Count 3.55 M/uL 3.29 M/uL Hemoglobin 11.7 g/dL 10.7 g/dL Hematocrit 34.1 % 31.6 % Mean Corpuscular Volume 96.1 fL 96.0 fL Mean Corpuscular Hemoglobin 33.0 pg 32.5 pg Mean Corpuscular Hemoglobin Concent 34.3 g/dl 33.9 g/dl Platelet Count 169 K/uL 164 K/uL Mean Platelet Volume 10.4 fL 10.6 fL Neutrophils (%) (Auto) 81.8 % Lymphocytes (%) (Auto) 12.0 % Monocytes (%) (Auto) 5.6 % Eosinophils (%) (Auto) 0.0 % Basophils (%) (Auto) 0.2 % Neutrophils # (Auto) 8.51 K/uL Lymphocytes # (Auto) 1.25 K/uL Monocytes # (Auto) 0.58 K/uL Eosinophils # (Auto) 0.00 K/uL Basophils # (Auto) 0.02 K/uL RDW Standard Deviation 48.5 fL 47.7 fL RDW Coefficient of Variation 13.8 % 13.7 % Immature Granulocyte % (Auto) 0.4 % Immature Granulocyte # (Auto) 0.04 K/uL Dohle Bodies 1+ Red Blood Cell Morphology Unremarkable Prothrombin Time 14.4 SECONDS 14.8 SECONDS Prothromb Time International Ratio 1.4 1.4 Activated Partial Thromboplast Time 30.1 SECONDS Partial Thromboplastin Ratio 1.2 Sodium Level 132 mmol/L 131 mmol/L Potassium Level 3.5 mmol/L 3.5 mmol/L Chloride Level 101 mmol/L 101 mmol/L Carbon Dioxide Level 25 mmol/L 24 mmol/L Anion Gap 6.0 mmol/L 6.0 mmol/L Blood Urea Nitrogen 20 mg/dl 20 mg/dl Creatinine 1.04 mg/dl 0.85 mg/dl Est Creatinine Clear Calc Drug Dose 41.4 ml/min 50.5 ml/min Estimated GFR () 56.7 72.4 Estimated GFR (Non- 49.0 62.5 BUN/Creatinine Ratio 19.3 23.8 Random Glucose 123 mg/dl 95 mg/dl Calcium Level 8.9 mg/dl 8.3 mg/dl Magnesium Level 1.5 mg/dl 1.7 mg/dl Total Bilirubin 0.9 mg/dl 0.8 mg/dl Direct Bilirubin 0.3 mg/dl 0.3 mg/dl Aspartate Amino Transf (AST/SGOT) 19 U/L 17 U/L Alanine Aminotransferase (ALT/SGPT) 13 U/L 12 U/L Alkaline Phosphatase 52 U/L 49 U/L Troponin I < 0.015 ng/ml Total Protein 9.0 gm/dl 8.0 gm/dl Albumin 2.6 gm/dl 2.2 gm/dl Lipase 92 U/L Procalcitonin 2.02 ng/ml Thyroid Stimulating Hormone (TSH) 1.740 uIu/ml Urine Color ORANGE Urine Appearance CLEAR Urine pH 5.0 Urine Specific [place] 1.023 Urine Protein NEG Urine Glucose (UA) NEG Urine Ketones NEG Urine Occult Blood NEG Urine Nitrite NEG Urine Bilirubin NEG Urine Urobilinogen NEG Urine Leukocyte Esterase SMALL Urine WBC (Auto) 5-10 /hpf Urine RBC (Auto) 0-4 /hpf Urine Hyaline Casts (Auto) 5-10 /lpf Urine Epithelial Cells (Auto) >30 /lpf Urine Bacteria (Auto) NEG Date/Time Source Procedure Growth Status 10/26/17 17:40 Blood Blood Culture Pending Received 10/26/17 17:30 Blood Blood Culture Pending Received Assessment & Plan 87 yo F presented with 4 days of cough, fever, chills and sore throat after exposure to sick household contacts and was found to have pneumonia. 1. Pneumonia-LLL infiltrate on CXR. Improved with Levaquin overnight. Still with mild hypoxia requiring 2L NC but no subjective shortness of breath and is overall improved. Flu PCR checked and negative. Blood and sputum cultures are pending. afebrile since yesterday evening. 2. Metabolic encephalopathy 2/2 infection-resolved. 3. Hyponatremia-likely 2/2 poor PO intake. Pt tolerating food but low appetite. IVF stopped. Cont PO intake and repeat PRP in am. 4. Hypomagenesemia-replace, recheck in am. 5. Elevated INR-poss 2/2 nutritional deficiency. Follow as outpatient-no bleeding or evidence of DIC. No need to hold DVT prophy 6. Anemia-no indication for transfusion, no active bleeding. Monitor in am. DVT proph: Lovenox Full Code Dispo: to Med[facility]Surg [facility] Current Inpatient Medications: Current Inpatient Medications Medications (Trade) Dose Ordered Sig/Lalo Route Start Time Stop Time Status Last Admin Dose Admin Levofloxacin 750 mg/Prmx 150 ml @ 100 mls/hr Q48H IV 10/28/17 18:00 11/02/17 17:59 Acetaminophen (Tylenol Tab) 650 mg Q4H PRN PO 10/26/17 19:15 11/25/17 19:14 Al Hydrox/Mg Hydrox/Simethicone (Maalox Max Susp) 15 ml Q4H PRN PO 10/26/17 19:15 11/25/17 19:14 Magnesium Hydroxide (Milk Of Magnesia Susp) 30 ml Q12H PRN PO 10/26/17 19:15 11/25/17 19:14 Ondansetron HCl (Zofran Inj) 4 mg Q6H PRN IV 10/26/17 19:15 11/25/17 19:14 Nitroglycerin (Nitrostat Tab) 0.4 mg UD PRN SL 10/26/17 19:15 11/25/17 19:14 Polyethylene (Miralax Powder Packet) 17 gm DAILY PRN PO 10/26/17 19:15 11/25/17 19:14 Amlodipine Besylate (Norvasc Tab) 5 mg DAILY PO 10/27/17 09:00 11/26/17 08:59 10/27/17 09:00 5 MG Atenolol (Tenormin Tab) 150 mg DAILY PO 10/27/17 09:00 11/26/17 08:59 10/27/17 09:00 150 MG Cyclobenzaprine HCl (Flexeril Tab) 5 mg HS PRN PO 10/26/17 19:30 11/25/17 19:29 Fenofibrate (Tricor Tab) 145 mg QPM PO 10/26/17 21:00 11/25/17 20:59 10/26/17 20:56 145 MG Fluoxetine HCl (Prozac Cap) 20 mg DAILY PO 10/27/17 09:00 11/26/17 08:59 10/27/17 09:00 20 MG Potassium Chloride (Klor-Con M10) 10 meq QPM PO 10/26/17 21:00 11/25/17 20:59 10/26/17 20:56 10 MEQ Tramadol HCl (Ultram Tab) 50 mg Q6 PRN PO 10/26/17 19:30 11/25/17 19:29 Polyethylene (Miralax Powder Packet) 17 gm DAILY PO 10/27/17 09:00 11/26/17 08:59 10/27/17 09:00 17 GM Levofloxacin (Consult) 1 ea UD PRN N/A 10/26/17 20:00 11/25/17 19:59 Ipratropium [place] (Atrovent 0.02% 0.5MG/2.5ML Neb) 0.5 mg Q6R PRN INH 10/26/17 21:00 11/25/17 20:59 Levalbuterol (Xopenex 1.25MG/ 0.5ML Neb) 1.25 mg Q6R PRN INH 10/26/17 21:00 11/25/17 20:59 Magnesium Oxide (Mag-Ox Tab) 400 mg BID PO 10/27/17 15:15 11/26/17 15:14 UNV
[2017-10-27] MEDS: MAGNESIUM OXIDE 400 MG TAB PO SCH ×2 (16:49→20:52)
[2017-10-27] MEDS ORDERED: LEVOFLOXACIN / D5W 750 MG in PREMIXED IN D5W 150 ML IV SCH (19:00)
[2017-10-27] MEDS: POTASSIUM CHLORIDE 10 MEQ TABCR PO SCH (20:52)
[2017-10-27] MEDS: FENOFIBRATE 145 MG TAB PO SCH (20:52)
[2017-10-28] VITALS (8 sets, daily range): BP systolic 129–167; BP diastolic 72–82; PULSE 75–79; TEMP 36.7–36.9; O2SAT 93–94
[2017-10-28 06:21] LABS: HEMOGLOBIN 10.7 g/dL (12.0-16.0); MEAN CELL VOLUME 94.5 fL (80-100); MEAN CORPUSCULAR HEMOGLOBIN 32.6 pg (25-34); MEAN CORPUSCULAR HGB CONC 34.5 g/dl (32-36); MEAN PLATELET VOLUME 10.3 fL (7.4-10.4); PLATELET COUNT 175 K/uL (130-400); RED CELL DISTRIBUTION WIDTH CV 13.6 % (11.5-14.5); RED CELL DISTRIBUTION WIDTH SD 47.2 fL (36.4-46.3); WHITE BLOOD COUNT 12.19 K/uL (4.8-10.8)
[2017-10-28 06:44] LABS: CALCIUM 8.5 mg/dl (8.5-10.1); CREATININE 0.63 mg/dl (0.60-1.20); POTASSIUM 3.5 mmol/L (3.5-5.1)
--- NOTE | 2017-10-28 07:18 | DIAGNOSTIC IMAGING REPORT ---
SINGLE VIEW CHEST CLINICAL HISTORY: Pneumonia. FINDINGS: An AP, portable, upright chest radiograph is compared to study dated 10/26/2017. The examination is degraded by portable technique and patient rotation. The heart is enlarged and there is atherosclerotic calcification of the thoracic aorta. The pulmonary vasculature is noncongested. Airspace consolidation is again seen in the left mid to lower lung with a trace left pleural effusion. The right lung is grossly clear. No pneumothorax is seen. The skeletal structures are osteopenic. The bony thorax is grossly intact. IMPRESSION: 1. Airspace consolidation is again seen in the left mid lower lung with associated pleural effusion. 2. Cardiomegaly without radiographic evidence of congestive failure. Electronically signed by: Joseph Hassan M.D. 10/28/2017 7:17 AM Dictated Date/Time: 10/28/2017 7:10 AM
[2017-10-28] MEDS: MAGNESIUM SULFATE 1GM / D5W 1 GM in PREMIXED IN D5W 100 ML IV SCH ×3 (08:19→10:20)
[2017-10-28] MEDS: POLYETHYLENE (MIRALAX) 17 GM PACK PO SCH (08:21)
[2017-10-28] MEDS: FLUOXETINE HCL 20 MG CAP PO SCH (08:21)
[2017-10-28] MEDS: AMLODIPINE BESYLATE 5 MG TAB PO SCH (08:22)
--- NOTE | 2017-10-28 15:32 | Progress Note ---
Medicine Progress Note Date & Time of Visit: Oct 28, 2017 at 15:20. Subjective 87 yo F presented with 4 days of cough, fever, chills and sore throat after exposure to sick household contacts and was found to have pneumonia. Breathing has improved today and she is off oxygen. She reports min to no coughing and has been afebrile without chills. Tolerating PO. Denies any other symptoms. Objective Last 8 Hrs Date Time Temp Pulse Resp B/P (MAP) Pulse Ox O2 Delivery O2 Flow Rate FiO2 10/28/17 15:14 36.9 75 20 129/72 (91) 93 Room Air 10/28/17 12:00 93 Room Air 10/28/17 08:02 36.7 78 20 166/80 (108) 93 Room Air 10/28/17 08:00 93 Room Air Physical Exam: GEN: WNWD, in no acute distress, alert and appropriate, no overt coughing or respiratory distress. HEENT: NC/AT, normal sclerae, MMM CARDIO: reg rate, S1/2 heard without m/g/r LUNGS: CTA bilaterally, no crackles, rales or wheezes, good diaphragmatic excursion ABD: soft, non-tender, non-distended, no rebound or guarding, +BS EXTREMITY: RP and DP palpable 2+ bilat, no LE swelling or edema, extremities are warm and well-perfused NEURO: CN 2-12 grossly intact MUSC: 5/5 strength throughout, no gross focal deficits SKIN: warm and dry Laboratory Results: 10/28/17 05:36 10/28/17 05:36 Test 10/26/17 17:00 10/26/17 17:30 10/27/17 04:00 10/27/17 05:10 Influenza Type A (RT-PCR) Neg for Influ A (NEG) Influenza Type B (RT-PCR) Neg for Influ B (NEG) Immature Granulocyte % (Auto) 0.4 % White Blood Count 10.40 K/uL (4.8-10.8) Red Blood Count 3.55 M/uL (4.2-5.4) Hemoglobin 11.7 g/dL (12.0-16.0) Hematocrit 34.1 % (37-47) Mean Corpuscular Volume 96.1 fL (80-100) Mean Corpuscular Hemoglobin 33.0 pg (25-34) Mean Corpuscular Hemoglobin Concent 34.3 g/dl (32-36) Platelet Count 169 K/uL (130-400) Mean Platelet Volume 10.4 fL (7.4-10.4) Neutrophils (%) (Auto) 81.8 % Lymphocytes (%) (Auto) 12.0 % Monocytes (%) (Auto) 5.6 % Eosinophils (%) (Auto) 0.0 % Basophils (%) (Auto) 0.2 % Neutrophils # (Auto) 8.51 K/uL (1.4-6.5) Lymphocytes # (Auto) 1.25 K/uL (1.2-3.4) Monocytes # (Auto) 0.58 K/uL (0.11-0.59) Eosinophils # (Auto) 0.00 K/uL (0-0.5) Basophils # (Auto) 0.02 K/uL (0-0.2) Immature Granulocyte # (Auto) 0.04 K/uL (0.00-0.02) Dohle Bodies 1+ Red Blood Cell Morphology Unremarkable Activated Partial Thromboplast Time 30.1 SECONDS (21.0-31.0) Partial Thromboplastin Ratio 1.2 Troponin I < 0.015 ng/ml (0-0.045) Lipase 92 U/L (73-393) Procalcitonin 2.02 ng/ml (0-0.5) Thyroid Stimulating Hormone (TSH) 1.740 uIu/ml (0.300-4.500) Urine Color ORANGE Urine Appearance CLEAR (CLEAR) Urine pH 5.0 (4.5-7.5) Urine Specific [place] 1.023 (1.000-1.030) Urine Protein NEG (NEG) Urine Glucose (UA) NEG (NEG) Urine Ketones NEG (NEG) Urine Occult Blood NEG (NEG) Urine Nitrite NEG (NEG) Urine Bilirubin NEG (NEG) Urine Urobilinogen NEG (NEG) Urine Leukocyte Esterase SMALL (NEG) Urine WBC (Auto) 5-10 /hpf (0-5) Urine RBC (Auto) 0-4 /hpf (0-4) Urine Hyaline Casts (Auto) 5-10 /lpf (0-5) Urine Epithelial Cells (Auto) >30 /lpf (0-5) Urine Bacteria (Auto) NEG (NEG) Prothrombin Time 14.8 SECONDS (9.0-12.0) Prothromb Time International Ratio 1.4 (0.9-1.1) Total Bilirubin 0.8 mg/dl (0.2-1) Direct Bilirubin 0.3 mg/dl (0-0.2) Aspartate Amino Transf (AST/SGOT) 17 U/L (15-37) Alanine Aminotransferase (ALT/SGPT) 12 U/L (12-78) Alkaline Phosphatase 49 U/L (45-117) Total Protein 8.0 gm/dl (6.4-8.2) Albumin 2.2 gm/dl (3.4-5.0) Test 10/28/17 05:36 Red Blood Count 3.28 M/uL (4.2-5.4) Mean Corpuscular Volume 94.5 fL (80-100) Mean Corpuscular Hemoglobin 32.6 pg (25-34) Mean Corpuscular Hemoglobin Concent 34.5 g/dl (32-36) RDW Standard Deviation 47.2 fL (36.4-46.3) RDW Coefficient of Variation 13.6 % (11.5-14.5) Mean Platelet Volume 10.3 fL (7.4-10.4) Anion Gap 8.0 mmol/L (3-11) Est Creatinine Clear Calc Drug Dose 68.1 ml/min Estimated GFR () 94.8 Estimated GFR (Non- 81.8 BUN/Creatinine Ratio 31.0 (10-20) Calcium Level 8.5 mg/dl (8.5-10.1) Magnesium Level 1.7 mg/dl (1.8-2.4) Date/Time Source Procedure Growth Status 10/26/17 17:40 Blood Blood Culture - Preliminary NO GROWTH TO DATE. Resulted 10/27/17 20:00 Sputum Expectorated Sputum Gram Stain - Final Resulted 10/27/17 20:00 Sputum Expectorated Sputum Sputum Culture - Preliminary LIGHT NORMAL TOÑO Present, Final Rep... Resulted Last 24 Hours Test 10/28/17 05:36 White Blood Count 12.19 K/uL Red Blood Count 3.28 M/uL Hemoglobin 10.7 g/dL Hematocrit 31.0 % Mean Corpuscular Volume 94.5 fL Mean Corpuscular Hemoglobin 32.6 pg Mean Corpuscular Hemoglobin Concent 34.5 g/dl RDW Standard Deviation 47.2 fL RDW Coefficient of Variation 13.6 % Platelet Count 175 K/uL Mean Platelet Volume 10.3 fL Sodium Level 133 mmol/L Potassium Level 3.5 mmol/L Chloride Level 103 mmol/L Carbon Dioxide Level 22 mmol/L Anion Gap 8.0 mmol/L Blood Urea Nitrogen 19 mg/dl Creatinine 0.63 mg/dl Est Creatinine Clear Calc Drug Dose 68.1 ml/min Estimated GFR () 94.8 Estimated GFR (Non- 81.8 BUN/Creatinine Ratio 31.0 Random Glucose 93 mg/dl Calcium Level 8.5 mg/dl Magnesium Level 1.7 mg/dl Date/Time Source Procedure Growth Status 10/27/17 20:00 Sputum Expectorated Sputum Gram Stain - Final Resulted 10/27/17 20:00 Sputum Expectorated Sputum Sputum Culture - Preliminary LIGHT NORMAL TOÑO Present, Final Rep... Resulted Assessment & Plan 87 yo F presented with 4 days of cough, fever, chills and sore throat after exposure to sick household contacts and was found to have pneumonia. Breathing has improved today and she is off oxygen. She reports min to no coughing and has been afebrile without chills. Tolerating PO. Denies any other symptoms. 1. Pneumonia-LLL infiltrate on CXR. Improved with Levaquin, hypoxia resolved. Blood cultures negative to date. Afebrile. Not used bronchodilators and will likely do well without them. Will change Levaquin to PO. Plan for dc to home in am. 2. Metabolic encephalopathy 2/2 infection-resolved. 3. Hyponatremia-likely 2/2 poor PO intake. Pt tolerating food but low appetite. IVF stopped. Cont PO intake and repeat PRP in am. 4. Hypomagenesemia-asymptomatic, poss 2/2 malnutrition. This is in line with slightly elevated INR 1.4, and Na 133. Should likely be substituted with PO at discharge with follow-up of Mg level in clinic and further workup of low Mg if needed as outpatient. No outpatient Mg available for comparison, so uncertain chronicity. 5. Elevated INR-poss 2/2 nutritional deficiency. Follow as outpatient-no bleeding or evidence of DIC. No need to hold DVT prophy 6. Anemia-no indication for transfusion, no active bleeding. Monitor in am. DVT proph: Lovenox Full Code Dispo: to home in am as cleared by PT. DO Sabrina Kaur Hospitalist Current Inpatient Medications: Current Inpatient Medications Medications (Trade) Dose Ordered Sig/Lalo Route Start Time Stop Time Status Last Admin Dose Admin Acetaminophen (Tylenol Tab) 650 mg Q4H PRN PO 10/26/17 19:15 11/25/17 19:14 Al Hydrox/Mg Hydrox/Simethicone (Maalox Max Susp) 15 ml Q4H PRN PO 10/26/17 19:15 11/25/17 19:14 Magnesium Hydroxide (Milk Of Magnesia Susp) 30 ml Q12H PRN PO 10/26/17 19:15 11/25/17 19:14 Ondansetron HCl (Zofran Inj) 4 mg Q6H PRN IV 10/26/17 19:15 11/25/17 19:14 Nitroglycerin (Nitrostat Tab) 0.4 mg UD PRN SL 10/26/17 19:15 11/25/17 19:14 Polyethylene (Miralax Powder Packet) 17 gm DAILY PRN PO 10/26/17 19:15 11/25/17 19:14 Amlodipine Besylate (Norvasc Tab) 5 mg DAILY PO 10/27/17 09:00 11/26/17 08:59 10/28/17 08:22 5 MG Atenolol (Tenormin Tab) 150 mg DAILY PO 10/27/17 09:00 11/26/17 08:59 10/28/17 08:22 150 MG Cyclobenzaprine HCl (Flexeril Tab) 5 mg HS PRN PO 10/26/17 19:30 11/25/17 19:29 Fenofibrate (Tricor Tab) 145 mg QPM PO 10/26/17 21:00 11/25/17 20:59 10/27/17 20:52 145 MG Fluoxetine HCl (Prozac Cap) 20 mg DAILY PO 10/27/17 09:00 11/26/17 08:59 10/28/17 08:21 20 MG Potassium Chloride (Klor-Con M10) 10 meq QPM PO 10/26/17 21:00 11/25/17 20:59 10/27/17 20:52 10 MEQ Tramadol HCl (Ultram Tab) 50 mg Q6 PRN PO 1/27/18 19:30 11/25/17 19:29 Polyethylene (Miralax Powder Packet) 17 gm DAILY PO 10/27/17 09:00 11/26/17 08:59 10/27/17 09:00 17 GM Levofloxacin (Consult) 1 ea UD PRN N/A 10/26/17 20:00 11/25/17 19:59 Ipratropium [place] (Atrovent 0.02% 0.5MG/2.5ML Neb) 0.5 mg Q6R PRN INH 10/26/17 21:00 11/25/17 20:59 Levalbuterol (Xopenex 1.25MG/ 0.5ML Neb) 1.25 mg Q6R PRN INH 10/26/17 21:00 11/25/17 20:59 Levofloxacin 750 mg/Prmx 150 ml @ 100 mls/hr Q24H IV 10/27/17 19:00 11/02/17 17:59 10/27/17 18:34 100 MLS/HR
[2017-10-28] MEDS ORDERED: LEVOFLOXACIN / D5W 750 MG in PREMIXED IN D5W 150 ML IV SCH (18:00)
[2017-10-28] MEDS: LEVOFLOXACIN 750 MG TAB PO SCH (18:15)
[2017-10-28] MEDS: FENOFIBRATE 145 MG TAB PO SCH (21:15)
[2017-10-28] MEDS: POTASSIUM CHLORIDE 10 MEQ TABCR PO SCH (21:16)
[2017-10-29 06:24] LABS: HEMATOCRIT 31.3 % (37-47); HEMOGLOBIN 10.6 g/dL (12.0-16.0); MEAN CELL VOLUME 94.3 fL (80-100); MEAN CORPUSCULAR HEMOGLOBIN 31.9 pg (25-34); MEAN CORPUSCULAR HGB CONC 33.9 g/dl (32-36); MEAN PLATELET VOLUME 10.4 fL (7.4-10.4); PLATELET COUNT 181 K/uL (130-400); RED CELL DISTRIBUTION WIDTH CV 13.6 % (11.5-14.5); RED CELL DISTRIBUTION WIDTH SD 47.1 fL (36.4-46.3); WHITE BLOOD COUNT 7.72 K/uL (4.8-10.8)
[2017-10-29 06:41] LABS: INR 1.1 (0.9-1.1)
[2017-10-29 07:10] LABS: CALCIUM 8.4 mg/dl (8.5-10.1); CREATININE 0.59 mg/dl (0.60-1.20); POTASSIUM 3.6 mmol/L (3.5-5.1)
[2017-10-29 07:11] VITALS: BP 156/71; PULSE 69; TEMP 36.5; O2SAT 94
[2017-10-29] MEDS: POLYETHYLENE (MIRALAX) 17 GM PACK PO SCH (08:41)
[2017-10-29] MEDS: FLUOXETINE HCL 20 MG CAP PO SCH (08:43)
[2017-10-29] MEDS: LEVOFLOXACIN 750 MG TAB PO SCH (08:44)
[2017-10-29] MEDS: AMLODIPINE BESYLATE 5 MG TAB PO SCH (08:44)
[2017-10-29] MEDS ORDERED: LVQ750 PO (11:26)
--- NOTE | 2017-10-29 11:35 | Discharge Summary ---
Discharge Summary Date of Service Oct 29, 2017. Discharge Summary Admission Date: Oct 26, 2017 at 19:05 Discharge Date: Oct 29, 2017 Discharge Disposition: Home Principal Diagnosis: Pneumonia Metabolic encephalopathy 2/2 infection-resolved. Hyponatremia Hypomagenesemia Elevated INR-poss 2/2 nutritional deficiency Anemia Procedures: None. Vaccinations: None. Consultations: None. Pending Studies/Follow-Up: see instructions below. Medication Reconciliation New Medications: Levofloxacin (Levofloxacin) 750 Mg Tab 750 MG PO DAILY for 3 Days, #3 TAB Continued Medications: Amlodipine (Norvasc) 5 Mg Tab 5 MG PO DAILY, 0 Refills Atenolol (Tenormin) 100 Mg Tab 150 MG PO DAILY, 0 Refills Cyclobenzaprine Hcl (Flexeril) 5 Mg Tab 5 MG PO HS PRN for spasms, TAB PRN Fenofibrate (Tricor ) 145 Mg Tab 145 MG PO QPM, 0 Refills with evening meal Fluoxetine (Prozac) 20 Mg Cap 20 MG PO DAILY, CAP Polyethylene Glycol 3350 (Miralax) 1 Pow Pow 17 GM PO DAILY, #255 GM Potassium Chloride (Micro-K Ext Rel) 10 Meq Capcr 10 MEQ PO QPM, CAP with evening meal Tramadol (Ultram) 50 Mg Tab 1 TAB PO Q6 PRN for Pain for 30 Days, #120 TAB Admission Information HPI (per Admitting provider): This a 87 yo F with past medical hx of HTN , Hyperlipidemia , Ostearthritis , depression -brought to ER by her Daughter Pt has been having cough , fever , chills, sore throat for past 3-4 days , had poor PO intake had generalized weakness, no muscle or joint ache pt lives with her daughter and son in law -both have been having URI symptoms for past 1 week This morning her daughter noticed -pt to be for confused ," foggy " , unable to remember things -which is off form her baseline pt is independent in her ADL' , at baseline usually not forgetful in ER pt was febrile temp 38.3 /tachycardic HR 108 /tachypneic RR 20 was hypoxic in room air, on 2 L 02 supplement ( not on home O2) Cxray shows Left lower lobe infiltrate Influenza PCR -negative for Influenza A/B Physical Exam (per Admitting): General Appearance: no apparent distress, + pertinent finding (well appearing elderly female , very pleasant ) Head: normocephalic, atraumatic Eyes: normal inspection, PERRL, EOMI, sclerae normal Neck: no carotid bruits, trachea midline Respiratory/Chest: chest non-tender, + crackles, + wheezing Cardiovascular: no edema, + tachycardia Abdomen/GI: non tender, soft Extremities/Musculoskelatal: normal inspection, no calf tenderness, normal capillary refill, no pedal edema Neurologic/Psych: no motor/sensory deficits, alert, normal mood/affect Skin: normal color, warm/dry, no rash Hospital Course 87 yo female presented to the ER with 4 days of flu-like symptoms including fevers, chills, cough, sore throat and body aches as well as some shortness of breath and weakness. She was found to have a temp of 38.3C, pulse 108 and was requiring 2L NC to achieve appropriate oxygen saturation. Lungs were clear to auscultation and she did appear to be somewhat confused. Chest x-ray revealed a new left lower lobe airspace opacity consistent with a pneumonia. WBC count was 10K, Na was 132, renal function was at baseline, Mg was low and INR was 1.4. Urine was clear of infection. She was given IVF, Tylenol and started on Levaquin 750mg IV and was admitted to telemetry. Flu PCR was checked and negative. Hyponatremia improved with IVF, and Mg was replaced. INR was thought 2/2/ poor nutrition and had normalized by discharge after two days of tolerating food. She was off the oxygen the following day, and was moved to the floor where she continued to recover. She was evaluated by PT and OT and determined to be safe to return home when medically stable. By day of discharge , symptoms had resolved, she had been afebrile for the past 48 hours, she was mentating well, ambulating at baseline and tolerating PO. she was off oxygen and saturating well on room air. She was sent home in stable condition with close PCP follow-up and recommendations to get the flu shot every year and to get a repeat CXR in 4-6 weeks. She verbalized understanding. Total time spent on discharge = 60 minutes This includes examination of the patient, discharge planning, medication reconciliation, and communication with other providers. Discharge Instructions [address] [address] Discharge Medical Patient Name: Sandra Reyes Unit Number: [id number] Date of : 1930 Patient Status: Admitted Inpatient Attending Doctor: Karlene Mobley DO DI: Medical v4 Discharge Instructions Date of Service Oct 29, 2017. Admission Reason for Admission: Flu-Like Symptoms, Pneumonia Discharge Discharge Diagnosis / Problem: CAP Discharge Goals Goal(s): Therapeutic intervention Activity Recommendations Activity Limitations: per Instructions/Follow-up section . Instructions / Follow-Up Instructions / Follow-Up Please take all medications as instructed. Please finish entire course of antibiotics as prescribed. Your medication has been electronically sent to the pharmacy we have on file. It is recommended that you have a repeat chest xray in 4-6 weeks to ensure complete resolution of the pneumonia. This may be ordered through your primary care physician's (PCP) office. You have a followup appointment with Dr. Sakshi Zambrano on Wednesday 11/01 @ 12:45pm for follow-up from this hospitalization. It was a pleasure taking care of you! Call if you have any questions or problems. You can reach a [facility] hospitalist on duty at [facility] 24 hours a day by calling [phone]. Take care of yourself. Karlene Mobley DO [facility] Diet Patient's current hospital diet: Regular Diet Discharge Diet Recommended Diet: Regular Diet Procedures Procedures Performed: None. Pending Studies Studies pending at discharge: yes List of pending studies: Preliminary blood cultures are negative at discharge but are still pending. Medical Emergencies . Who to Call and When: Medical Emergencies: If at any time you feel your situation is an emergency, please call 911 immediately. . Non-Emergent Contact Non-Emergency issues call your: Primary Care Provider . . "Provider Documentation" section prepared by Karlene Mobley. . VTE Core Measure Inpt VTE Proph given/why not?: SCD's Additional Copies To Sakshi ZAMBRANO M.D.; Duglas Romo D.O.
[2017-10-29 12:17] VITALS: BP 156/71; PULSE 69; TEMP 36.5; O2SAT 94
== END 2017-10-29 13:00 | disposition home or self-care (01) | DRG 193 ==
LOC: EDBD 16:57 → C.EDC 16:58 → C.2T 19:05 → ENRESERV 19:11 → C.MED 10-27 16:17 → C.4E 10-28 21:40
PROVIDERS: ADMIT Hospitalist; ATTEND Hospitalist
DX: J18.9 Pneumonia, unspecified organism (principal); G93.41 Metabolic encephalopathy; E87.1 Hypo-osmolality and hyponatremia; R79.1 Abnormal coagulation profile; E63.9 Nutritional deficiency, unspecified; F32.9 Major depressive disorder, single episode, unspecified; E78.5 Hyperlipidemia, unspecified; I10 Essential (primary) hypertension; E83.42 Hypomagnesemia; D64.9 Anemia, unspecified; R09.02 Hypoxemia; Z79.899 Other long term (current) drug therapy